=== PATIENT | female | born 1935 | race Caucasian/White ===

== ENCOUNTER 2018-01-10 09:38 | Outpatient (CLI) | payer MEDICARE, BC ==
--- NOTE | 2018-01-10 15:03 | MRI ---
MRI OF THE LUMBAR SPINE WITH AND WITHOUT IV CONTRAST: INDICATION: History of neurogenic claudication. CONTRAST: 12 cc of MultiHance. COMPARISON: Prior MRI of lumbar spine without contrast dated 07/25/13. FINDINGS: Since the comparison examination, there has been worsening of the levoscoliosis centered at L2-3. Conus is seen to terminate at approximately T12-L1. There are worsening Modic end plate degenerative changes seen at L1-2, L2-3, and L3-4. There is interval postsurgical change consistent with laminectomies at L3-4. At L5-S1, there is no appreciable central canal or neural foraminal narrowing. There is mild facet o steoarthrosis and mild disk-osteophyte complex. At L4-5, there is a broad-based disk-osteophyte complex with facet hypertrophy inducing stable mild c entral canal narrowing with mild to moderate left and mild right neural foraminal narrowing. At L3-4, there has been improvement of the central canal narrowing seen on the prior examination. Th ere is a mild residual broad-based bulge with facet hypertrophy. There is worsening loss of height a t the right L3-4 neural foramina with associated osteophyte complex and facet hypertrophy inducing se francesca right neural foraminal narrowing. There is mild left neural foraminal narrowing that appears im proved from the prior exam. At the L2-3 level, there is an asymmetric to the right disk-osteophyte complex and facet osteoarthros is induces mild right neural foraminal narrowing. This is stable to the prior exam. At L1-L2, there is an asymmetric to the right disk-osteophyte complex that is slightly more pronounce d than on the prior exam. The disk-osteophyte complex and facet hypertrophy induces mild narrowing o f the right lateral recess without definite impingement of the traversing L2 nerve root. The disk-os teophyte complex and facet hypertrophy induces moderate right and mild left neural foraminal narrowin g which have progressed from the prior exam. There is stable hemangioma within the right aspect of T12. Postcontrast images demonstrate a small amount of fibrotic change at the laminotomy sites at L3-4. N o additional area of abnormal enhancement is demonstrated. IMPRESSION: 1. Interval surgical change of L3-4 laminectomies. 2. Improvement in the central canal narrowing previously seen at L3-4. There is also some improveme nt in the neural foraminal narrowing at L3-4 on the left. However, there is worsening severe neural foraminal narrowing on the right at L3-4 since the comparison examination related to worsening degene rative scoliosis, disk-osteophyte complex, and facet osteoarthrosis. 3. Stable mild right neural foraminal narrowing at L2-3. 4. Worsening moderate right neural foraminal narrowing at L1-2. There is also worsening mild right lateral recess narrowing at L1-2 without definite impingement of the traversing L2 nerve root. POS: RADHA
== END 2018-01-10 09:39 | disposition home or self-care (01) ==
LOC: SCSMRI 09:38
PROVIDERS: ATTEND Neurological Surgery
DX: M48.062 Spinal stenosis, lumbar region with neurogenic claudication (principal); M99.83 Other biomechanical lesions of lumbar region; Z98.890 Other specified postprocedural states
CPT/HCPCS: 72158; 82565

== ENCOUNTER 2018-01-31 07:18 | Day surgery (SDC) | payer MEDICARE, BC ==
[2018-01-28 12:33] VITALS: BMI 22.4
--- NOTE | 2018-01-30 21:06 | HP ---
HISTORY OF PRESENT ILLNESS: Ms. Bruce is an 82-year-old woman who presents for evaluation of severe lower back pain with neurogenic claudication symptoms, have been present for several years. They hav e continued to progress over that time she has had conservative treatment in the way of therapy and o [id number] medications, but unfortunately has not had any significant relief. She has a new MRI from [place] that reveals scoliosis as well as severe foraminal and lateral recess stenosis at mu ltiple levels. She hopes to move forward with surgery if possible. PAST MEDICAL HISTORY: Significant for osteoporosis, hypothyroidism, hypertension, hypercholesterolem ia. CURRENT MEDICATIONS: Include levothyroxine, lisinopril, metformin, pravastatin, pramipexole, naproxe n, amitriptyline, gabapentin, ibuprofen. PAST SURGICAL HISTORY: Partial hysterectomy, rectal repair, cataract surgery, bilateral venous laser ablation, L3-L4 lumbar decompression, right knee arthroscopy, carpal tunnel release. ALLERGIES: No known drug allergies. PHYSICAL EXAMINATION: The patient is alert and oriented x3. Gait is significantly antalgic and slow ed. Lower extremity motor exam is normal. ASSESSMENT: Lumbar stenosis with neurogenic claudication. PLAN: Dr. Wright met with the patient, reviewed imaging, and advocated for an L3 through L5 decompres chris. He explained to the patient the risks, benefits, and alternatives of the procedure. The patie nt expressed understanding and would like to move forward with surgery as discussed. I do believe th e patient is mentally competent and capable of making medical decisions for herself. We will move fo rward with surgery as planned. Ross Howard PA-C dictating for Dr. Wright.
[2018-01-31] MEDS ORDERED: CEFAZOLIN/Water 2 GM/20 ML SYRINGE ONE ×2 (08:43→14:13)
[2018-01-31] MEDS ORDERED: Famotidine/PF 20 mg/2ml Vial ONE (09:58)
[2018-01-31] MEDS ORDERED: Fentanyl 100 MCG/2 ML VIAL ONE (09:58)
[2018-01-31] MEDS ORDERED: Bupivacaine HCl 0.5%/Epinephrine 1:200,000/PF 30 ml Vial ONE (09:59)
[2018-01-31] MEDS ORDERED: Morphine 4 MG/ML VIAL ONE (11:51)
[2018-01-31] MEDS ORDERED: Ketorolac Tromethamine 30 MG/ML VIAL ONE (13:12)
[2018-01-31] MEDS ORDERED: PROPOFOL 200 MG/20 ML VIAL ONE (13:12)
[2018-01-31] MEDS ORDERED: Glycopyrrolate 0.2 MG/ML 5 ML SYRINGE ONE (13:12)
[2018-01-31] MEDS ORDERED: Dexamethasone 20 MG/5 ML VIAL ONE (13:12)
[2018-01-31] MEDS ORDERED: Ondansetron HCl/PF 4 MG/2 ML Vial ONE (13:12)
[2018-01-31] MEDS ORDERED: Lidocaine 1% PF 5 ML VIAL ONE (13:12)
[2018-01-31] MEDS ORDERED: Pramipexole Di-HCl 1 MG TAB PO SCH (21:00)
--- NOTE | 2018-02-01 11:43 | OP ---
DATE OF PROCEDURE: 01/31/2018 SURGEON: Herbert Wright M.D. [employer]MICAL [employer]OUNDER HELPER: Ruben Howard PA-C. INDICATION: Pain. DIAGNOSIS: Lumbar stenosis. PROCEDURE: L3 through L5 lumbar decompression. ANESTHESIA: General. TECHNIQUE: The patient was brought into the operating room and placed under general anesthesia. She was flipped from a supine to a prone position on the operating room table. A linear incision was pl anned spanning L3-L5. After prepping and draping and after an appropriate pause, the incision was cr eated. The soft tissues were swept away from midline. A self-retaining retractor was placed in the wound for optimal exposure. After confirming the appropriate level with C-arm fluoroscopy, a high-sp eed cutting drill bit as well as 2, 3 and 4 mm Kerrisons were used to perform a laminectomy which ext ended from L3-L5. Part of this was a prior operative site which took additional time. After decompr essing the area, the wound was irrigated. Hemostasis was maintained throughout. The wound was then closed in anatomic layers and a pressure dressing was applied. There were no known procedural compli cations.
== END 2018-01-31 15:08 | disposition home or self-care (01) ==
LOC: SDC 07:18
PROVIDERS: ATTEND Neurological Surgery
PROC: 00NY0ZZ Release Lumbar Spinal Cord, Open Approach (ICD-10-PCS; principal; 2018-01-31)
DX: M48.062 Spinal stenosis, lumbar region with neurogenic claudication (principal); M81.0 Age-related osteoporosis without current pathological fracture; E03.9 Hypothyroidism, unspecified; I10 Essential (primary) hypertension; E78.00 Pure hypercholesterolemia, unspecified; Z79.84 Long term (current) use of oral hypoglycemic drugs; Z79.82 Long term (current) use of aspirin; Z79.899 Other long term (current) drug therapy
CPT/HCPCS: 76001; 96374; J0131; J0670; J2270; J3010; S0028

== ENCOUNTER 2018-01-31 22:20 | Observation (INO) | payer MEDICARE, BC ==
[2018-01-31] MEDS ORDERED: Acetaminophen/Codeine 30-300mg Tablet PO PRN (22:25)
[2018-01-31] MEDS ORDERED: tiZANidine HCl 4 MG TAB PO PRN (22:25)
[2018-01-31] MEDS ORDERED: Acetaminophen 325 MG TAB PO PRN (22:25)
[2018-01-31] MEDS ORDERED: diphenhydrAMINE 25 MG CAP PO PRN (22:25)
[2018-01-31] MEDS ORDERED: Cephalexin 250 MG CAP PO SCH (22:45)
[2018-01-31 23:28] VITALS: BMI 25.2
[2018-02-01 07:49] VITALS: BP 135/72; TEMP 98.4
[2018-02-01] MEDS ORDERED: Cephalexin 250 MG CAP PO SCH (09:00)
[2018-02-01] MEDS ORDERED: Lisinopril 20 MG TAB PO SCH (09:00)
[2018-02-01] MEDS ORDERED: Ascorbic Acid 500 mg Chewable Tablet PO SCH (09:00)
[2018-02-01] MEDS ORDERED: Gabapentin 100 MG CAP PO SCH (09:00)
[2018-02-01] MEDS ORDERED: Metoprolol Tartrate 50 MG TAB PO SCH (09:00)
[2018-02-01] MEDS ORDERED: Pramipexole Di-HCl 1 MG TAB PO SCH (09:00)
[2018-02-01] MEDS ORDERED: Folic Acid 1 MG TAB PO SCH (09:00)
[2018-02-01] MEDS ORDERED: Fish Oil 1,000 MG CAP PO SCH (09:00)
[2018-02-01] MEDS ORDERED: Atorvastatin Calcium 10 MG TAB PO SCH (21:00)
[2018-02-01] MEDS ORDERED: Amitriptyline HCl 25 MG TAB PO SCH (21:00)
[2018-02-02] MEDS ORDERED: Levothyroxine Sodium 75 MCG TAB PO SCH (06:00)
== END 2018-02-01 09:54 | disposition home or self-care (01) ==
LOC: SURG B 22:20
PROVIDERS: ADMIT Neurological Surgery; ATTEND Neurological Surgery
DX: L76.22 Postprocedural hemorrhage of skin and subcutaneous tissue following other procedure (principal); Z79.1 Long term (current) use of non-steroidal anti-inflammatories (NSAID); Z79.82 Long term (current) use of aspirin; Z79.899 Other long term (current) drug therapy; Z98.890 Other specified postprocedural states
CPT/HCPCS: 76001; 96374; G0378; G0379; J0131; J0670; J1100; J1885; J2001; J2270; J2405; J2704; J3010; S0028

== ENCOUNTER 2019-11-02 08:21 | Outpatient (CLI) | payer MEDICARE, BC ==
--- NOTE | 2019-11-02 09:16 | ULT ---
LEFT BREAST ULTRASOUND: HISTORY: Followup to a left unilateral diagnostic mammogram to evaluate a nodular density in the 2 o'clock pos ition of the left breast. In the 2 o'clock position of the left breast 8 cm from the nipple, there is a cyst measuring 0.6 x 0. 8 cm in size. Immediately adjacent to this cyst is a smaller cyst measuring 0.2 x 0.3 cm. IMPRESSION: Benign cyst in the left breast at 2 o'clock 8 cm from the nipple corresponding to the mammographic ar ea of concern. BIRADS category 2, benign findings. Continued annual followup screening mammograms.
--- NOTE | 2019-11-02 09:24 | MMO ---
Left Breast MAMMO Unilat Diag DDI LT+JOHAN. CLINICAL HISTORY: Patient is 84 years old and is seen for diagnostic exam. The patient has the following family history of breast cancer: maternal grandmother. The patient has no personal history of cancer. VIEWS: The views performed were: left craniocaudal spot compression with tomosynthesis; left mediolateral oblique spot compression with tomosynthesis; and left mediolateral with tomosynthesis. FILMS COMPARED: The present examination has been compared to prior imaging studies performed at [facility] on 11/15/2014 and 11/02/2019, at [facility] on 12/02/2012, and at [facility] on 10/26/2019. This study has been interpreted with the assistance of computer-aided detection. MAMMOGRAM FINDINGS: The breast is heterogeneously dense, which could obscure a lesion on mammography. There is an oval mass measuring 7 x 9 mm with circumscribed margins seen in the left breast. cysts on ultrasound There are no suspicious masses, suspicious calcifications, or new areas of architectural distortion. IMPRESSION: THERE IS NO MAMMOGRAPHIC EVIDENCE OF MALIGNANCY. A ROUTINE FOLLOW-UP MAMMOGRAM IN 1 YEAR IS RECOMMENDED. THE RESULTS OF THIS EXAM WERE SENT TO THE PATIENT. ACR BI-RADS Category 2 - Benign finding MAMMOGRAPHY NOTE: 1. A negative mammogram report should not delay a biopsy if a dominant of clinically suspicious mass is present. 2. Approximately 10% to 15% of breast cancers are not detected by mammography. 3. Adenosis and dense breasts may obscure an underlying neoplasm. Reported by: ZARINA HARTLEY MD Electonically Signed: [id number]
== END 2019-11-02 08:22 | disposition home or self-care (01) ==
LOC: BICMAMMO 08:21
PROVIDERS: ATTEND Obstetrics & Gynecology Female Pelvic Medicine and Reconstructive Surgery
DX: N63.20 Unspecified lump in the left breast, unspecified quadrant (principal); N60.02 Solitary cyst of left breast
CPT/HCPCS: 76642; 77065; G0279